=== PATIENT | male | born 1950 | race Caucasian/White ===

== ENCOUNTER → 2017-10-07 | Outpatient (CLI) | payer OTHER ==
[~2017-10-07] MED LIST: ADVIN10/60 INH; ADVIN50050 INH; ASPEC81 PO; CMD1 PO; CMD5 PO; CNT PO; CZR50 PO; FLNIN NAE; LEVO1TAB35 PO; METO50TA16 PO; MXRAIN INH; NTRGSL/4 UT; OMEG10007 PO; OPTIRAY 320 IV PRN; OXYC-57 PO; PRED20TA PO; SNG10 PO; TRAM-10 PO; [UNRECOGNIZED DRUG - CODE] PO
[2017-10-07 08:03] LABS: ISTAT HEMOGLOBIN 14.6 g/dl (14.0-18.0); ISTAT IONIZED CALCIUM 1.24 mmol/l (1.12-1.32)
--- NOTE | 2017-10-07 08:44 | DIAGNOSTIC IMAGING REPORT ---
CHEST CTA for PULMONARY ARTERIES CT DOSE: 570.85 mGycm HISTORY: Short of breath. TECHNIQUE: Multiaxial CT images of the chest were performed following the intravenous administration of contrast to evaluate the pulmonary arteries. Maximal intensity projection images were also obtained. A dose lowering technique was utilized adhering to the principles of ALARA. COMPARISON STUDY: Chest CTA 09/10/2011. Outside hospital chest CTA 04/05/2017. FINDINGS: The ascending thoracic aorta measures up to 4.5 cm in diameter. Evaluation for an aortic dissection is nondiagnostic due to the timing of contrast. Mild retrograde opacification into the hepatic veins. No hepatic or splenic masses. The visualized left adrenal gland is unremarkable. Stable 1.3 cm right adrenal gland nodule. Trace right pleural effusion persists. Trace pericardial effusion, unchanged. The heart remains enlarged. Persistent mediastinal and bilateral hilar lymphadenopathy. Dominant mediastinal subcarinal lymph node measures 3.3 x 2.1 cm. No suspicious lytic or blastic osseous lesions. Multiple tiny scattered nodular densities seen throughout the lungs. These have both a centrilobular and perilymphatic distribution. This demonstrates a slight upper lobe predominant. This has slightly improved in the interval. A few small patchy densities within the base the right lower lobe which are similar to the prior study. Small patchy density within the base of the right middle lobe. No definite filling defects seen within the pulmonary arteries to suggest pulmonary embolus. IMPRESSION: 1. No definite evidence for pulmonary embolus. 2. Slight improvement in the multiple tiny scattered nodular densities seen throughout the lungs. The mediastinal or hilar lymphadenopathy remains unchanged. This is nonspecific but could be due to sarcoidosis or an atypical pneumonia. Metastatic disease and tuberculosis could also a similar appearance but are considered less likely 2. Trace pericardial effusion and trace right pleural effusion persist. 3. The heart remains enlarged. 4. No change in the mild aneurysmal dilatation of the ascending thoracic aorta which measures up to 4.5 cm in diameter. Electronically signed by: Ron Craven M.D. 10/07/2017 8:43 AM Dictated Date/Time: 10/07/2017 8:10 AM
== END | disposition home or self-care (01) ==
LOC: C.CTS 07:02
PROVIDERS: ATTEND Physician Assistant
DX: I48.91 Unspecified atrial fibrillation (principal); R06.00 Dyspnea, unspecified; R91.8 Other nonspecific abnormal finding of lung field; R59.0 Localized enlarged lymph nodes; I31.3 Pericardial effusion (noninflammatory); J90 Pleural effusion, not elsewhere classified; I71.2 Thoracic aortic aneurysm, without rupture

== ENCOUNTER → 2017-10-29 | Day surgery (SDC) | payer OTHER ==
[2017-10-28 09:27] VITALS: BMI 32.0
[~2017-10-29] VITALS: Ht 185.4 cm; Wt 110.0 kg
[~2017-10-29] MED LIST changes: +ACET-1256 PO; -ADVIN10/60 INH; -ADVIN50050 INH; +ALBU18002 INH; +ALBUTEROL NEB INH; +ALPR-411 PO; -ASPEC81 PO; +ATOR-22 PO; +ATROPINE SULFATE 0.1 MG/ML 5ML SYR IV PRN; +CALC600T9 PO; -CMD1 PO; -CMD5 PO; -CNT PO; -CZR50 PO; +DEXAMETHASONE SOD INJ 4 MG/ML VIAL ONE; +EpHEDrine SULFATE INJ 50 MG/ML AMP IV PRN; +FENTANYL CITRATE INJ 50 MCG/1 ML 2 ML VIAL ONE; -FLNIN NAE; +FLUT0.15 INTNAS; +FLUT1INH7 INH; +HYDR12.55 PO; +LACTATED RINGER'S 1000ML 1,000 ML IV SCH; -LEVO1TAB35 PO; +LIDOCAINE HCL 2% 2 ML VIAL (20MG/ML) ONE; +LOSA1TAB38 PO; +METF1TAB53 PO; +METO100T14 PO; -METO50TA16 PO; +MIDAZOLAM HCL 1 MG/ML 2ML VIAL ONE; +MONT1TAB3 PO; -MXRAIN INH; -OMEG10007 PO; +ONDANSETRON INJ 2 MG/ML 2 ML VIAL ONE; -OPTIRAY 320 IV PRN; -OXYC-57 PO; -PRED20TA PO; +PROPOFOL IV EMULSION 10 MG/ML 20 ML VIAL IV ONE; +RIVA1TAB4 PO; +ROCURONIUM BROMIDE 10 MG/ML 5 ML VIAL IV ONE; -SNG10 PO; +SUCCINYLCHOLINE CHLORIDE 20 MG/ML 10 ML VIAL IV ONE; -TRAM-10 PO; -[UNRECOGNIZED DRUG - CODE] PO
--- NOTE | 2017-10-29 08:24 | History and Physical ---
History & Physical Date of Service Oct 29, 2017. History & Physical Reason for visit: EBUS History of present illness: Patient is a 67-year-old male presenting to [facility] for EBUS evaluation. The patient does have history of asthma, silicosis, pulmonary nodules, and hilar adenopathy. He follows with LILIAN Ennis as an outpatient. The patient recently had a CTA of the chest on 10/08/2017 which showed multiple tiny scattered nodular densities seen throughout the lungs. Mediastinal or hilar lymphadenopathy was again noted, but could be consistent with sarcoidosis or an atypical pneumonia. Metastatic disease and tuberculosis could also have a similar appearance is. Trace pericardial effusion was also noted. The patient initially saw LILIAN Stone as an outpatient in March 2017 with concerns of increasing breathing problems. The patient previously had been on antibiotics and steroids for asthma exacerbations. At that time, he was treated with Levaquin and prednisone. The patient did also have repeat PFTs completed on 09/04/2017. He was noted to have mild obstructive ventilatory disease with an FEV1 of 72%, no significant response to bronchodilators, signs of hyperinflation based off of RV/TLC ratio of 45 Past medical history: 1. Acute bronchitis (J20.9) 2. Adenopathy, hilar (R59.0) 3. Allergic rhinitis (J30.9) 4. Asthma, intermittent (J45.20) 5. Atrial fibrillation (I48.91) 6. Carotid bruit (R09.89) 7. Chest discomfort (R07.89) 8. Cough (R05) 9. Diabetes (E11.9) 10. Dyslipidemia (E78.5) 11. Dyspnea (R06.00) 12. Hypertension (I10) 13. 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 Pulmonary nodules (R91.8) 15. 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 Amoxicillin TABS 2. KAYLEY Inhibitors Current medications: 1. ProAir HFA 108 (90 Base) MCG/ACT Inhalation Aerosol Solution; INHALE 2 PUFFS EVERY 4 HOURS NEEDED 2. Breo Ellipta 200-25 MCG/INH Inhalation Aerosol Powder Breath Activated; INHALE 1 PUFFS Daily 3. PredniSONE 10 MG Oral Tablet; Take 4 pills daily for 2 days, then 3 pills daily for 2 days, then 2 pills daily for 2 days, then 1 pill daily for 2 days 4. Caltrate 600+D Plus Minerals 600-800 MG-UNIT Oral Tablet Chewable 5. HydroCHLOROthiazide 12.5 MG Oral Tablet 6. LevoFLOXacin 750 MG Oral Tablet 7. Losartan Potassium 100 MG Oral Tablet; Take 1 tablet daily 8. MetFORMIN HCl - 500 MG Oral Tablet 9. Nitroglycerin 0.4 MG Sublingual Tablet Sublingual; PLACE 1 TABLET UNDER THE TONGUE EVERY 5 MINUTES FOR UP TO 3 DOSES NEEDED FOR CHEST PAIN.CALL 911 IF PAIN PERSISTS 10. Singulair 10 MG Oral Tablet 11. Xarelto 20 MG Oral Tablet; Take 1 tablet daily Physical exam: General: Patient is awake, alert, cooperative, and in no acute distress. Well developed. Well-nourished. Skin: Normal appearance, texture, and temperature. No apparent rash or ecchymoses. HEENT: Normocephalic and atraumatic. Eyes are anicteric and non-erythematous. EOMI c PERRLA. Hearing intact and without difficulty. Nose appears normal and without drainage. Trachea midline. Thyroid appears normal, and neck is supple. Lungs: No respiratory distress. No accessory muscle use. Heart: Regular rate and rhythm. Extremities: No cyanosis or edema. Neuro: Alert and oriented X3. CN II-XII grossly intact. Sensation and motor function grossly intact. Assessment and plan: Multiple pulmonary nodules and hilar/mediastinal lymphadenopathy on CT scan Plan for evaluation with EBUS today
[2017-10-29 08:42] VITALS: BP 148/96; PULSE 92; TEMP 36.5; O2SAT 96; Ht 185.4 cm; Wt 110.0 kg
--- NOTE | 2017-10-29 10:00 | History & Physical Bridge Note ---
H&P Re-Evaluation Bridge Note: I have examined the patient, reviewed the History & Physical and in the interval since the performance of the History & Physical I have noted the following changes of clinical significance: No changes noted
--- NOTE | 2017-10-29 11:25 | Bronchoscopy Procedure Note ---
Bronchoscopy Procedure Note Procedure: Flexible-Bronchoscopy, EBUS, FNA, Tbbx, BAL Consent: Obtained through the patient placed into the chart Pre-Procedural Dx: Mediastinal adenopathy with bilateral tree-in-bud pattern Post-Procedural Dx: Mediastinal adenopathy with bilateral tree-in-bud pattern Analgesia: GETA Sedation: GETA Procedure: The Olympus video bronchoscope and EBUS scope were used for this procedure Initially the flexible bronchoscope was used for evaluation of the airways. An LMA Size 5 was used for this procedure and properly positioned Vocal Cords: Anatomically WNL Sub-Glottis & Trachea: Anatomically WNL, diffuse mucus secretions Mariangel: Anatomically within normal limits, diffuse mucous secretions Right bronchial tree: Right mainstem bronchus: Anatomically within normal limits Right upper lobe: Anatomically within normal limits Bronchus intermedius: Anatomically within normal limits Right middle lobe: Anatomically within normal limits Right lower lobe: Anatomically within normal limits Findings: Diffuse mucous secretions especially in the right upper lobe Left bronchial tree: Left mainstem bronchus: Anatomically within normal limits Left upper lobe: Anatomically within normal limits Lingula: Anatomically within normal limits Left lower lobe: Anatomically within normal limits Findings: Mild mucous secretions EBUS/BEATRICE: FNA Olive Stations: 7: # of passes 8 (multiple different olive sites anterior and posterior/ left and right) 10R: # of passes 10 Tbbx: Right upper lobe 7 BAL: Right upper lobe EBL: 10 cc Complications: Mild intra-bronchial bleeding from the right upper lobe associated with the Tbbx None Follow-up: PACU
--- NOTE | 2017-10-29 12:06 | Anesthesiology Progress Note ---
Anesthesia Post Op Note Date & Time Oct 29, 2017 at 12:05 Vital Signs Pain Intensity: 0 Vital Signs Past 12 Hours Date Time Temp Pulse Resp B/P (MAP) Pulse Ox O2 Delivery O2 Flow Rate FiO2 10/29/17 11:55 82 21 132/87 95 Nasal Cannula 2 10/29/17 11:45 82 18 138/95 99 Mask 10 10/29/17 11:35 89 18 121/83 97 Mask 15 10/29/17 11:26 36.0 114 22 132/89 80 Oxymask 10 10/29/17 08:42 36.5 92 18 148/96 (113) 96 Room Air Notes Mental Status: alert / awake / arousable, participated in evaluation Pt Amnestic to Procedure: Yes Nausea / Vomiting: adequately controlled Pain: adequately controlled Airway Patency, RR, SpO2: stable & adequate BP & HR: stable & adequate Hydration State: stable & adequate Anesthetic Complications: no major complications apparent
[2017-10-29 12:35] VITALS: BP 111/61; PULSE 82; TEMP 36.7; O2SAT 92
--- NOTE | 2017-10-29 12:44 | Discharge Instructions ---
Discharge Instructions Date of Service Oct 29, 2017. Admission Reason for Admission: Hilar Adenoptahy, Pulmonary Nodules Discharge Discharge Diagnosis / Problem: Mediastinal Adenopathy with multiple small pulmonary nodules Discharge Goals Goal(s): Diagnostic testing Activity Recommendations Activity Limitations: resume your previous activity . Instructions / Follow-Up Instructions / Follow-Up With Provider Aiden Gatica Current Hospital Diet Patient's current hospital diet: Discharge Diet Recommended Diet: Regular Diet Procedures Procedures Performed: Flexible Bronchoscopy, Endobronchial Ultrasound, Trans-Tracheal Bronchial Needle Aspiration Transbronchial Forcep-Biopsy, Bronchial Lavage Pending Studies Studies pending at discharge: yes List of pending studies: Chest X-ray Medical Emergencies . Who to Call and When: Medical Emergencies: If at any time you feel your situation is an emergency, please call 911 immediately. . Non-Emergent Contact Non-Emergency issues call your: Production Quality Manager . . "Provider Documentation" section prepared by Geoffrey Agarwal. . VTE Core Measure Inpt VTE Proph given/why not?: Treatment not indicated
[2017-10-29 13:00] VITALS: BP 92/54; PULSE 83; O2SAT 91
[2017-10-29 13:33] VITALS: BP 111/63; PULSE 85; TEMP 36.8; O2SAT 94
--- NOTE | 2017-10-29 14:03 | DIAGNOSTIC IMAGING REPORT ---
CHEST ONE VIEW PORTABLE HISTORY: 67 years-old Male R/O PTX follow-up study in a patient with pulmonary nodules COMPARISON: CTA of the chest 10/07/2017, chest radiograph 09/12/2011 TECHNIQUE: Portable AP view of the chest FINDINGS: Cardiac silhouette is moderately enlarged, unchanged. Mild pulmonary vascular congestion without overt pulmonary edema. Multifocal multilobar reticular nodular opacities are again seen which appears stable to slightly progressed from comparison. Mild blunting of the costophrenic angles suggests trace effusions. No pneumothorax. The bones of the chest appear grossly intact. IMPRESSION: 1. Persistent multifocal multilobar distribution of reticular nodular opacities which appears stable to slightly progressed from comparison CT of the chest 10/07/2017. 2. Cardiomegaly without overt pulmonary edema. 3. Mild blunting of the costophrenic angles suggests trace effusions. The above report was generated using voice recognition software. It may contain grammatical, syntax or spelling errors. Electronically signed by: Chase Silva M.D. 10/29/2017 2:02 PM Dictated Date/Time: 10/29/2017 1:59 PM
== END | disposition home or self-care (01) ==
LOC: C.ACU 07:39
PROVIDERS: ATTEND Internal Medicine Critical Care Medicine
DX: R59.0 Localized enlarged lymph nodes (principal); R91.8 Other nonspecific abnormal finding of lung field; J45.20 Mild intermittent asthma, uncomplicated; I48.91 Unspecified atrial fibrillation; R09.89 Other specified symptoms and signs involving the circulatory and respiratory systems; E78.5 Hyperlipidemia, unspecified; I10 Essential (primary) hypertension; E11.9 Type 2 diabetes mellitus without complications; Z79.01 Long term (current) use of anticoagulants; Z79.84 Long term (current) use of oral hypoglycemic drugs; Z79.899 Other long term (current) drug therapy

== ENCOUNTER 2023-09-30 13:57 | Observation (INO) ==
--- NOTE | 2023-09-30 14:12 | ED Triage Note ---
Date of Service September 30, 2023 History of Present Illness This patient was briefly evaluated while in triage. An abbreviated physical exam was performed. This patient is a 73-year-old Male who presents to the ED for evaluation of hemoptysis, bright red clots. 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 No chest pain or dyspnea. Takes blood thinners. No fevers or URI symptoms. + history of CKD. Physical Exam CONSTITUTIONAL: in no acute pain or distress, resting comfortably SKIN: pink, warm, dry CARDIAC: regular rate and rhythm RESPIRATORY: in no respiratory distress, Left lung decreased lung sounds Initial orders for labs and / or imaging were placed and patient was placed in the waiting area until a bed is available. Please see further documentation for the full ED course.
[2023-09-30 14:54] LABS: Basophils # (auto) 0.02 K/uL (0.00-0.20); Basophils % (auto) 0.3 %; Eosinophils # (auto) 0.04 K/uL (0.00-0.50); Eosinophils % (auto) 0.6 %; Hematocrit (blood only) 46.3 % (42.0-52.0); Hemoglobin 15.8 g/dl (14.0-18.0); Immature Granulocytes # (auto) 0.01 K/uL (0.01-0.20); Immature Granulocytes % (auto) 0.2 %; Lymphocytes # (auto) 0.63 K/uL (1.20-3.40); Lymphocytes % (auto) 9.8 %; Mean Corpuscular Hgb Conc 34.1 g/dL (32.0-36.0); Mean Corpuscular Volume 90.8 fL (80.0-100.0); Mean Platelet Volume 10.5 fL (9.4-12.4); Monocytes # (auto) 0.61 K/uL (0.11-0.59); Monocytes % (auto) 9.4 %; Neutrophils # (auto) 5.15 K/uL (1.40-6.50); Neutrophils % (auto) 79.7 %; Platelet Count 198 K/uL (130-400); RDW Coefficient of Variation 13.8 % (11.5-14.5); RDW Standard Deviation 46.5 fL (36.4-46.3); White Blood Count 6.46 K/ul (4.8-10.8)
--- NOTE | 2023-09-30 14:55 | XRay Report ---
SINGLE VIEW CHEST CLINICAL HISTORY: Hemoptysis FINDINGS: A PA chest radiograph is compared to study dated 10/29/2017 and correlated with chest CT kenny ed 07/21/2019. The heart is enlarged. The pulmonary vasculature is noncongested. Innumerable tiny pulm onary nodules are similar to previous. There is bibasilar scarring/atelectasis. Foci of parenchymal s carring are observed. No superimposed airspace consolidation or large pleural effusion is identified. No pneumothorax is seen. Skeletal structures are osteopenic. The bony thorax is grossly intact. IMPRESSION: 1. Cardiomegaly with no acute cardiopulmonary abnormality identified. 2. Innumerable tiny pulmonary nodules are similar to previous. This is better assessed on prior CT sc ans. ACT 112: Negative or not required by law. Electronically signed by: Madi Askew M.D. 09/30/2023 2:54 PM
[2023-09-30 15:02] LABS: Alanine Aminotransferase 12 U/L (7-52); Albumin Level 4.1 gm/dl (3.4-5.0); Alkaline Phosphatase 63 U/L (34-104); Anion Gap 6 (3-11); Aspartate Aminotransferase 14 U/L (13-39); Blood Urea Nitrogen 25 mg/dl (6-23); Calcium 9.7 mg/dl (8.6-10.3); Carbon Dioxide 31 mmol/L (21-32); Chloride 100 mmol/L (98-107); Est GFR (African American) 68.8 ml/min; Est GFR (Non-African American) 59.4 ml/min; Globulin 4.3 gm/dl (2.5-4.0); Glucose 114 mg/dl (70-99(Fasting)); Potassium 3.8 mmol/L (3.5-5.1); Sodium 137 mmol/L (136-145); Total Protein 8.4 gm/dl (6.0-8.3)
--- NOTE | 2023-09-30 15:29 | Electrocardiogram Report ---
Test Reason : Blood Pressure : / mmHG Vent. Rate : 087 BPM Atrial Rate : 087 BPM P-R Int : 000 ms QRS Dur : 134 ms QT Int : 378 ms P-R-T Axes : 000 -77 059 degrees QTc Int : 454 ms Undetermined rhythm Left axis deviation Left bundle branch block Abnormal ECG When compared with ECG of 13-SEP-2011 06:41, Significant changes have occurred Confirmed by Misael Tesfaye ([id number]) on 09/30/2023 3:28:45 PM Referred By: Confirmed By:Misael Tesfaye
--- NOTE | 2023-09-30 18:08 | Emergency Department Note ---
Impression & Plan Hemoptysis ED Provider Note NAME: ISAEL MIN AGE: 73 SEX: M : 1950 ARRIVES VIA: Walk-In INFORMANT: Patient, ED PROVIDER(S): Kamron Pozo MD CHIEF COMPLAINT: Hemoptysis HPI: This is a 73-year-old male presenting for hemoptysis. Patient states that he has history of silicosis usually coughs up yellow sputum. Over the past few days he has noticed he had usual yellow sputum with slight blood tinge. This morning however he notes that there was only blood in his sputum. He then noticed he coughed up a "big glob "elevated they look exactly for blood clot. He states he has had some chest tightness during this episode. Otherwise no chest pain, pleurisy. He is on anticoagulation, Xarelto. He has not happened before. At this time he has not had any hemoptysis for the past 5 hours. He has not coughing, which is usual for him with his silicosis. Denies any recent chest congestion, sinus congestion, fevers, chills. ROS: See above HPI for pertinent positives & negatives. A total of 10 systems reviewed and were otherwise negative. PAST MEDICAL HISTORY: See Below PAST SURGICAL HISTORY: See Below FAMILY HISTORY: See Below SOCIAL HISTORY: See Below HOME MEDICATIONS: See Below ALLERGIES: See Below VITALS: See Below PHYSICAL EXAMINATION: General: resting comfortably in no acute distress Head: Normocephalic and atraumatic Eyes: Normal inspection, extraocular muscles intact, no conjunctival pallor Ear, nose, throat: Normal external exam Neck: Normal range of motion Respiratory: Patient is in no respiratory distress, lungs clear to auscultation bilaterally Cardiovascular: RRR without murmur appreciated GI: soft, nontender, no guarding or rebound Extremities: pulses intact with good cap refills, no LE pitting edema or calf tenderness Neuro: The patient awake and alert, appropriately conversive,no focal decifits Skin: Warm, dry, and intact MEDICAL DECISION MAKING: This is a 73-year-old male presenting for hemoptysis. Vital signs reviewed patient is on anticoagulation as well. Lower concern for PE however due to increasing amounts of hemoptysis today, will get CTA PE protocol. May also help elucidate any underlying pneumonia. CTA does reveal multiple tree-in-bud densities concerning for aspiration versus intra-alveolar hemorrhage. Based on clinical history, lower concern for intra- alveolar hemorrhage. Otherwise patient has new mass, 2 cm on left lower lobe. Discussed with patient's conservation or heritage architect, Dr. Taylor, who is in agreement about plan for admission. He recommends antibiotics and steroids over the course the night. Patient be seen by his conservation or heritage architect tomorrow morning. Chest Xray independently interpreted by me showing no pneumothorax, focal opacity, or pleural effusions, but does show cardiomegaly. We will admit for persistent hemoptysis. Triage Nursing notes reviewed. Prior medical records reviewed Vital Signs: reviewed and remarkable for no significant abnormalities Differential diagnosis: Pulm hemorrhage, PE, mass ER treatment provided: See below Diagnostics interpreted by me: ECG: ECG independently interpreted by me with possible atrial fibrillation with a ventricular rate of rate of 87, left axis deviation, left bundle branch block, normal QTc, no ST segment elevations consistent with STEMI criteria or Sgarbossa criteria Cardiac Monitoring: An order was placed for continuous cardiac monitoring. The monitor shows a rate of 76 with atrial fibrillation rhyth Laboratory studies: As stated above and show below. Imaging studies: See below. 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 History of shortness of breath History of pulmonary embolism Family History (Updated 02/22/20 @ 09:14 by Jo Dobson RRT) Father Heart disease Mother Cancer Social History (Updated 02/22/20 @ 09:16 by Jo Dobson RRT) Smoking Status: Never smoker Feels Safe at Home: Yes Allergies Allergies Allergy/AdvReac Type Severity Reaction Status Date / Time amoxicillin Allergy Unknown Hives Verified 06/03/23 09:37 doxycycline AdvReac Intermediate naushea Verified 06/03/23 09:37 KAYLEY Inhibitors AdvReac Unknown Cough Verified 06/03/23 09:37 Home Meds Home Medications Medication Instructions Recorded Confirmed acetaminophen 325 mg tablet PO PRN 07/30/19 06/03/23 atorvastatin 20 mg tablet PO .TAKE 1 TABLET BY EDWIN #90 tabs 07/30/19 06/03/23 bumetanide 1 mg tablet PO .TAKE 1 TABLET TWICE 07/30/19 06/03/23 calcium carbonate 600 mg calcium PO .TAKE 1 TABLET DAILY. 07/30/19 06/03/23 (1,500 mg) tablet cholecalciferol (vitamin D3) 50 1 PO .TAKE 1 CAPSULE Daily 07/30/19 06/03/23 mcg (2,000 unit) capsule fluticasone propionate 50 intranasal PRN 07/30/19 06/03/23 mcg/actuation nasal spray,suspension losartan 100 mg tablet 1 PO .Take 1 tablet daily #30 tabs 07/30/19 06/03/23 metoprolol tartrate 100 mg tablet PO .TAKE 1 TABLET BY EDWIN 07/30/19 06/03/23 montelukast 10 mg tablet PO .TAKE 1 TABLET DAILY. 07/30/19 06/03/23 nitroglycerin 0.4 mg sublingual sublingual .PLACE 1 TABLET UNDER 07/30/19 06/03/23 tablet alprazolam 0.5 mg tablet PO .Take 1 tablet every PRN #90 07/13/20 06/03/23 tabs clonidine HCl 0.1 mg tablet 0.1 mg PO BID 12/05/22 06/03/23 cyanocobalamin (vitamin B-12) 1,000 mcg PO DAILY 04/02/23 06/03/23 1,000 mcg capsule dapagliflozin propanediol 10 mg 10 mg PO DAILY 04/02/23 06/03/23 tablet (Farxiga) dulaglutide 0.75 mg/0.5 mL mg subcut 04/02/23 06/03/23 subcutaneous pen injector (Trulicity) hydrochlorothiazide 25 mg tablet 25 mg PO DAILY 04/02/23 06/03/23 rivaroxaban 20 mg tablet (Xarelto) 20 mg PO DAILY 04/02/23 06/03/23 Previous Rx's Medication Instructions Recorded sodium chloride 7 % for 4 ml inhalation BID #240 mL 05/03/22 nebulization albuterol sulfate 90 mcg/actuation 2 puff inhalation Q4H PRN 10/01/22 aerosol inhaler shortness of breath or wheezing #18 grams ipratropium 0.5 mg-albuterol 3 mg 3 ml inhalation Q4H PRN shortness 04/01/23 (2.5 mg base)/3 mL nebulization of breath or wheezing #360 mL soln fluticasone fur. 100 mcg-umeclid 1 inh inhalation DAILY #3 Inhalers 05/31/23 62.5 mcg-vilant 25 mcg inhalat.powder azithromycin 500 mg tablet See Rx Instructions PO .COMPLEX #3 09/30/23 tabs prednisone 10 mg tablet 40 mg (4 x 10 mg) PO DAILY 5 days 09/30/23 #20 tabs Results & Data (ED) Vital Signs Vital Signs - 24 hr 09/30/23 14:04 09/30/23 14:04 09/30/23 17:10 Temperature 36.2 C L Temperature Source Temporal Artery Scan Pulse Rate 77 Pulse Rate [Right] 68 Pulse Rhythm [Right] Regular Pulse Strength [Right] Respiratory Rate 18 18 Respiratory Effort / Characteristics Respiratory Depth Respiratory Pattern Blood Pressure 121/81 Blood Pressure [Right Arm] 139/82 Blood Pressure Mean 94 Blood Pressure Mean [Right Arm] 101 Blood Pressure Position Sitting Pulse Oximetry 96 96 96 Oxygen Delivery Method Room Air Room Air Room Air Sepsis Recent Fever Within 48 Hours No Sepsis New/Unexplained Change in Mental Status N/A Sepsis Action Taken by Nursing No Action Required 09/30/23 17:56 09/30/23 18:32 09/30/23 18:51 Temperature Temperature Source Pulse Rate 72 Pulse Rate [Right] 64 101 H Pulse Rhythm [Right] Regular Irregular Pulse Strength [Right] Normal Normal Respiratory Rate 18 26 H Respiratory Effort / Characteristics Non-Labored Spontaneous SOB on Exertion Respiratory Depth Normal Respiratory Pattern Regular Regular Blood Pressure Blood Pressure [Right Arm] 155/85 H 138/99 Blood Pressure Mean Blood Pressure Mean [Right Arm] 108 112 Blood Pressure Position Pulse Oximetry 98 Oxygen Delivery Method Room Air Room Air Sepsis Recent Fever Within 48 Hours Sepsis New/Unexplained Change in Mental Status Sepsis Action Taken by Nursing 09/30/23 20:23 09/30/23 21:46 Temperature Temperature Source Pulse Rate 76 Pulse Rate [Right] 74 Pulse Rhythm [Right] Regular Pulse Strength [Right] Normal Respiratory Rate 18 Respiratory Effort / Characteristics Non-Labored Spontaneous Respiratory Depth Normal Respiratory Pattern Regular Blood Pressure Blood Pressure [Right Arm] 149/80 H Blood Pressure Mean Blood Pressure Mean [Right Arm] 103 Blood Pressure Position Pulse Oximetry 96 Oxygen Delivery Method Room Air Sepsis Recent Fever Within 48 Hours Sepsis New/Unexplained Change in Mental Status Sepsis Action Taken by Nursing Laboratory Data 09/30/23 14:28 09/30/23 14:28 Lab Results 09/30/23 Range/Units 14:28 WBC 6.46 (4.8-10.8) K/ul RBC 5.10 (4.70-6.10) M/uL Hgb 15.8 (14.0-18.0) g/dl Hct 46.3 (42.0-52.0) % MCV 90.8 (80.0-100.0) fL MCH 31.0 (25.0-34.0) pg MCHC 34.1 (32.0-36.0) g/dL RDW Std Deviation 46.5 H (36.4-46.3) fL RDW Coeff of Amber 13.8 (11.5-14.5) % Plt Count 198 (130-400) K/uL MPV 10.5 (9.4-12.4) fL Immature Gran % (Auto) 0.2 % Neut % (Auto) 79.7 % Lymph % (Auto) 9.8 % [place] % (Auto) 9.4 % Eos % (Auto) 0.6 % Baso % (Auto) 0.3 % Neut # (Auto) 5.15 (1.40-6.50) K/uL Lymph # (Auto) 0.63 L (1.20-3.40) K/uL [place] # (Auto) 0.61 H (0.11-0.59) K/uL Eos # (Auto) 0.04 (0.00-0.50) K/uL Baso # (Auto) 0.02 (0.00-0.20) K/uL Immature Gran # (Auto) 0.01 (0.01-0.20) K/uL Sodium 137 (136-145) mmol/L Potassium 3.8 (3.5-5.1) mmol/L Chloride 100 (98-107) mmol/L Carbon Dioxide 31 (21-32) mmol/L Anion Gap 6 (3-11) BUN 25 H (6-23) mg/dl Creatinine 1.19 (0.6-1.4) mg/dl Est Cr Clr Drug Dosing Not Reportable Est GFR ( Amer) 68.8 ml/min Est GFR (Non-Af Amer) 59.4 ml/min BUN/Creatinine Ratio 21.0 H (10-20) Glucose 114 H (70-99(Fasting)) mg/dl Calcium 9.7 (8.6-10.3) mg/dl Total Bilirubin 1.0 (0.2-1.0) mg/dl AST 14 (13-39) U/L ALT 12 (7-52) U/L Alkaline Phosphatase 63 (34-104) U/L Troponin I High Sens 10.0 (0-20) pg/ml Total Protein 8.4 H (6.0-8.3) gm/dl Albumin 4.1 (3.4-5.0) gm/dl Globulin 4.3 H (2.5-4.0) gm/dl Albumin/Globulin Ratio 1.0 (0.9-2) Administered Medications Ceftriaxone Sodium (Rocephin) 2,000 mg in 50 mls @ 100 mls/hr IV NOW STA Stop: 09/30/23 21:51 Last Admin: 09/30/23 21:38 Dose: 100 mls/hr Documented By: VINAYAK Discontinued Medications Ioversol (Optiray 320 500ml) 112 ml IV ONCE ONE Stop: 09/30/23 19:29 Last Admin: 09/30/23 19:33 Dose: 112 ml Documented By: PLW Methylprednisolone (Methylprednisolone 125 Mg/2 Ml Vial) 125 mg IV NOW STA Stop: 09/30/23 21:24 Last Admin: 09/30/23 21:34 Dose: 125 mg Documented By: VINAYAK Imaging Data Radiologist's Impression: Chest X-Ray 09/30/23 14:09 SINGLE VIEW CHEST CLINICAL HISTORY: Hemoptysis FINDINGS: A PA chest radiograph is compared to study dated 10/29/2017 and correlated with chest CT dated 07/21/2019. The heart is enlarged. The pulmonary vasculature is noncongested. Innumerable tiny pulmonary nodules are similar to previous. There is bibasilar scarring/atelectasis. Foci of parenchymal scarring are observed. No superimposed airspace consolidation or large pleural effusion is identified. No pneumothorax is seen. Skeletal structures are osteopenic. The bony thorax is grossly intact. IMPRESSION: 1. Cardiomegaly with no acute cardiopulmonary abnormality identified. 2. Innumerable tiny pulmonary nodules are similar to previous. This is better assessed on prior CT scans. ACT 112: Negative or not required by law. Electronically signed by: Madi Askew M.D. 09/30/2023 2:54 PM Chest CTA 09/30/23 17:49 Exam(s): CTA CHEST IV Amt: 112 ml opti 320 EXAM: CT Angiography Chest With Intravenous Contrast CLINICAL HISTORY: Reason for exam: PE, coughing up blood. TECHNIQUE: Axial computed tomographic angiography images of the chest with intravenous contrast. CTDI is 66.5 mGy and DLP is 1789.49 mGy-cm. Automated exposure control was utilized for the study. A dose lowering technique was utilized adhering to the principles of ALARA. MIP reconstructed images were created and reviewed. COMPARISON: No relevant prior studies available. FINDINGS: Pulmonary arteries: Unremarkable. No pulmonary embolism. Aorta: Ascending aorta is ectatic, measuring 4.4 cm in diameter. No thoracic aortic aneurysm. Lungs: 7 mm nodule seen in the left lower lobe on image 27, series 2. 1.4 cm nodular density seen in the left posterior lung base on image 18, series 2. 2 cm diameter nodular density seen in the left lower lobe with surrounding tree-in-bud inflammatory densities. There are tree-in-bud inflammatory densities seen scattered in the upper lobes and right lower lobe. Pleural space: Unremarkable. No significant effusion. No pneumothorax. Heart: Small pericardial effusion. Moderate cardiomegaly. No evidence of RV dysfunction. Mediastinum: There is mild hilar and mediastinal lymphadenopathy. Bones/joints: No acute fracture. No dislocation. IMPRESSION: 1. Bilateral extensive tree-in-bud densities in the lungs which could be from aspiration changes or intra-alveolar hemorrhage. 2. Nodular lesions in the left lower lobe measuring up to 2 cm in diameter, the differential diagnosis of which includes neoplastic process. 3. Hilar and mediastinal lymphadenopathy Electronically signed by: Masoud Nowak MD 09/30/23 20:34 PM Discharge Plan Visit Data Chief Complaint: Cardiac Assessment Stated Complaint: COUGHING UP BLOOD, TIGHTNESS IN CHEST ED Provider: Kamron Pozo Discharge Problem: Hemoptysis Forms Stand Alone Forms: [employer] [facility] Prescriptions Prescriptions: No Action sodium chloride 7 % solution for nebulization 4 ml inhalation BID Qty: 240 5RF albuterol sulfate 90 mcg/actuation HFA aerosol inhaler 2 puff inhalation Q4H PRN (Reason: shortness of breath or wheezing) Qty: 18 5RF ipratropium-albuterol 0.5 mg-3 mg(2.5 mg base)/3 mL solution for nebulization 3 ml inhalation Q4H PRN (Reason: shortness of breath or wheezing) Qty: 360 3RF ssottgurnpr-haaqrmttu-pvzxlnod 100-62.5-25 mcg blister with device 1 inh inhalation DAILY Qty: 3 3RF prednisone 10 mg tablet 40 mg PO DAILY 5 Days Qty: 20 0RF azithromycin 500 mg tablet See Rx Instructions PO .COMPLEX Qty: 3 0RF Rx Instructions: For 500 mg dose pack: take 500 mg once daily for 3 days PO fluticasone propionate 50 mcg/actuation spray,suspension intranasal PRN losartan 100 mg tablet 1 PO .Take 1 tablet daily Qty: 30 montelukast 10 mg tablet PO .TAKE 1 TABLET DAILY. nitroglycerin 0.4 mg tablet, sublingual SL .PLACE 1 TABLET UNDER calcium carbonate 600 mg calcium (1,500 mg) tablet PO .TAKE 1 TABLET DAILY. acetaminophen 325 mg tablet PO PRN cholecalciferol (vitamin D3) 2,000 unit capsule 1 PO .TAKE 1 CAPSULE Daily bumetanide 1 mg tablet PO .TAKE 1 TABLET TWICE metoprolol tartrate 100 mg tablet PO .TAKE 1 TABLET BY EDWIN atorvastatin 20 mg tablet PO .TAKE 1 TABLET BY EDWIN Qty: 90 alprazolam 0.5 mg tablet PO .Take 1 tablet every PRNQty: 90 clonidine HCl 0.1 mg tablet 0.1 mg PO BID Farxiga 10 mg tablet 10 mg PO DAILY hydrochlorothiazide 25 mg tablet 25 mg PO DAILY Trulicity 0.75 mg/0.5 mL pen injector subcut cyanocobalamin (vitamin B-12) 1,000 mcg capsule 1,000 mcg PO DAILY Xarelto 20 mg tablet 20 mg PO DAILY Rx Instructions: must administer with evening meal Referrals Referrals: Mayte Lee CRNP [Primary Care Provider] -
[2023-09-30] MEDS ORDERED: OPTIRAY 320 500ml IV ONE (19:28)
--- NOTE | 2023-09-30 20:35 | CT Scan Report ---
Exam(s): CTA CHEST IV Amt: 112 ml opti 320 EXAM: CT Angiography Chest With Intravenous Contrast CLINICAL HISTORY: Reason for exam: PE, coughing up blood. TECHNIQUE: Axial computed tomographic angiography images of the chest with intravenous contrast. CTDI is 66.5 mGy and DLP is 1789.49 mGy-cm. Automated exposure control was utilized for the study. A dose lowering technique was utilized adhering to the principles of ALARA. MIP reconstructed images were created and reviewed. COMPARISON: No relevant prior studies available. FINDINGS: Pulmonary arteries: Unremarkable. No pulmonary embolism. Aorta: Ascending aorta is ectatic, measuring 4.4 cm in diameter. No thoracic aortic aneurysm. Lungs: 7 mm nodule seen in the left lower lobe on image 27, series 2. 1.4 cm nodular density seen in the left posterior lung base on image 18, series 2. 2 cm diameter nodular density seen in the left lower lobe with surrounding tree-in-bud inflammatory densities. There are tree-in-bud inflammatory densities seen scattered in the upper lobes and right lower lobe. Pleural space: Unremarkable. No significant effusion. No pneumothorax. Heart: Small pericardial effusion. Moderate cardiomegaly. No evidence of RV dysfunction. Mediastinum: There is mild hilar and mediastinal lymphadenopathy. Bones/joints: No acute fracture. No dislocation. IMPRESSION: 1. Bilateral extensive tree-in-bud densities in the lungs which could be from aspiration changes or intra-alveolar hemorrhage. 2. Nodular lesions in the left lower lobe measuring up to 2 cm in diameter, the differential diagnosis of which includes neoplastic process. 3. Hilar and mediastinal lymphadenopathy Electronically signed by: Masoud Nowak MD 09/30/23 20:34 PM
[2023-09-30] MEDS ORDERED: AZITHROMYCIN 500 MG in DEXTROSE 5% 250 ML IV STA (21:22)
[2023-09-30] MEDS ORDERED: cefTRIAXone SODIUM 2,000 MG/50 ML BAG IV STA (21:22)
[2023-09-30] MEDS ORDERED: methylPREDNISolone 125 MG/2 ML VIAL IV STA (21:23)
[2023-09-30] MEDS ORDERED: cloNIDine HCL 0.1 MG TAB PO ONE (22:46)
[2023-09-30] MEDS ORDERED: METOPROLOL TARTRATE 100 MG TAB PO STA (23:04)
--- NOTE | 2023-09-30 23:10 | History & Physical Report ---
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 He does note change in his chronic yellow sputum cough to a few bright red spots the previous evening, and then dark sputum throughout the day of admission Hold any antiplatelet and anticoagulation agents Given Solu-Medrol 125 mg IV from the ED Solu-Medrol 40 mg IV every 12 hours Ceftriaxone 2 g IV every 24 hours Azithromycin 500 mg IV every 24 hours DuoNebs every 2 hours as needed NSS at 100 mils per hour x1 L Pantoprazole 40 mg IV daily Consult pulmonology Dr. Taylor History of PE/chronic anticoagulation with Xarelto- Hold anticoagulation as noted Diabetes mellitus- Hold dulaglutide and dapagliflozin Place on Accu-Cheks with NovoLog SSI Hypertension- Continue metoprolol tartrate and clonidine Hold amlodipine, finerenone, HCTZ and potassium chloride History of Present Illness Chief Complaint: The patient presents to the emergency department with complaint of a change in his chronic cough productive of yellow sputum, to a few bright red spots of blood last evening, and then today reports dark-colored mucus throughout the day. 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 Patient had had a CTA of chest which had concern for possible lung mass, with slight FDG uptake, which resolved after treatment with antibiotics and steroids. He presents to the emergency department with hemoptysis, but reports no change in his baseline dyspnea on exertion. Patient underwent CTA of chest in ED this evening which showed bilateral extensive tree-in-bud densities in the lungs which could be from aspiration or intra-alveolar hemorrhage. Nodular lesions in the left lower lobe measuring up to 2 cm in diameter with differential diagnosis including neoplastic process. Hilar and mediastinal lymphadenopathy were noted. The ED contacted pulmonology Dr. 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 Allergies Allergy/AdvReac Type Severity Reaction Status Date / Time amoxicillin Allergy Unknown Hives Verified 09/30/23 22:45 doxycycline AdvReac Intermediate naushea Verified 09/30/23 22:45 KAYLEY Inhibitors AdvReac Unknown Cough Verified 09/30/23 22:45 Home Medications Medication Instructions Recorded Confirmed Type atorvastatin 20 mg tablet 20 mg PO QAM #90 tabs 07/30/19 09/30/23 History bumetanide 1 mg tablet 1 mg PO BID PRN Fluid Retention 07/30/19 09/30/23 History calcium carbonate 600 mg calcium 600 mg PO QAM 07/30/19 09/30/23 History (1,500 mg) tablet cholecalciferol (vitamin D3) 50 2,000 unit PO QAM 07/30/19 09/30/23 History mcg (2,000 unit) capsule nitroglycerin 0.4 mg sublingual 0.4 mg sublingual UD PRN Chest Pain 07/30/19 09/30/23 History tablet albuterol sulfate 90 mcg/actuation 2 puff inhalation Q4H PRN 10/01/22 09/30/23 Rx aerosol inhaler shortness of breath or wheezing #18 grams dapagliflozin propanediol 10 mg 10 mg PO QAM 04/02/23 09/30/23 History tablet (Farxiga) dulaglutide 0.75 mg/0.5 mL 0.75 mg subcut WK 04/02/23 09/30/23 History subcutaneous pen injector (Trulicity) hydrochlorothiazide 25 mg tablet 25 mg PO QAM 04/02/23 09/30/23 History acetaminophen 500 mg tablet 1,000 mg PO Q6H PRN Fever Or Pain 09/30/23 09/30/23 History (Tylenol Extra Strength) alprazolam 0.5 mg tablet 0.5 mg PO Q6 PRN Anxiety 09/30/23 09/30/23 History amlodipine 5 mg tablet 5 mg PO QAM 09/30/23 09/30/23 History azithromycin 500 mg tablet See Rx Instructions PO .COMPLEX #3 09/30/23 09/30/23 Rx tabs clonidine HCl 0.2 mg tablet 0.2 mg PO BID 09/30/23 09/30/23 History finerenone 10 mg tablet (Kerendia) 10 mg PO QAM 09/30/23 09/30/23 History fluticasone fur. 100 mcg-umeclid 1 ea inhalation QAM 09/30/23 09/30/23 History 62.5 mcg-vilant 25 mcg inhalat.powder (Trelegy Ellipta) ipratropium 0.5 mg-albuterol 3 mg 3 ml inhalation DAILY 09/30/23 09/30/23 History (2.5 mg base)/3 mL nebulization soln ipratropium bromide 42 mcg (0.06 1 - 2 spray intranasal DAILY 09/30/23 09/30/23 History %) nasal spray metoprolol tartrate 100 mg tablet 200 mg PO BID 09/30/23 09/30/23 History montelukast 10 mg tablet 10 mg PO HS 09/30/23 09/30/23 History potassium chloride 20 mEq 20 meq PO BID PRN with bumetanide 09/30/23 09/30/23 History tablet,extended release(part/cryst) (Klor-Con M) prednisone 10 mg tablet 40 mg (4 x 10 mg) PO DAILY 5 days 09/30/23 09/30/23 Rx #20 tabs rivaroxaban 20 mg tablet 20 mg PO PM 09/30/23 09/30/23 History sodium chloride 7 % for 1 inh inhalation BID PRN Congestion 09/30/23 09/30/23 History nebulization Past Med/Surg History Medical History (Updated 10/01/23 @ 04:49 by Anastacio Davison MD) Chronic anticoagulation Abnormal PET scan, lung Weight loss, abnormal Multiple pulmonary nodules determined by computed tomography of lung Moderate persistent asthma Dyspnea on exertion 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 History of shortness of breath History of pulmonary embolism Family History (Updated 02/22/20 @ 09:14 by Jo Dobson RRT) Father Heart disease Mother Cancer Social History (Updated 02/22/20 @ 09:16 by Jo Dobson RRT) Smoking Status: Never smoker Second Hand Exposure: No; Do You Dip or Chew Tobacco: No; Tobacco Cessation Education Requested by Patient: No Hx Alcohol Use: No Hx Substance Use: No Preferred Language: Tuvaluan 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: No Beliefs That Will Affect Care: None Current Living Situation: Spouse Other Information That Helps Us Care for You: No Feels Safe at Home: Yes Safety Concerns: Feels Safe At This Time Assistive Devices: Glasses Review of Systems Review of Systems: The patient denies chest pain, palpitations, change in his baseline shortness of breath and dyspnea on exertion, change in cough, lower extremity swelling, sore throat, fevers, chills, sweats, fatigue, nausea, vomiting, diarrhea , constipation, abdominal pain, pelvic pain, blood in urine or stool, dysuria, urinary frequency or urgency, lightheadedness, dizziness, headache, memory loss, loss of consciousness, rash, imbalance, focal or generalized weakness, numbness or tingling in arms or legs, generalized arthralgias or myalgias, back or neck pain, or night sweats. The review of systems is otherwise negative other than for that already noted above, and at least 10 systems have been reviewed. Physical Exam Physical Exam: The patient is awake, alert and oriented 3, well developed and well nourished, normocephalic and atraumatic, lying in bed and in no acute distress. HEENT--PERRL, EOMI, mucous membranes and oropharynx normal Neck--supple. No JVD. No bruits. Thyroid normal, trachea midline, no adenopathy. Heart--normal S1 and S2. No murmurs, rubs or gallops. Lungs--few coarse breath sounds bilaterally, no respiratory distress, no accessory muscle use. Abdomen--normal bowel sounds and soft. Nontender. Nondistended Extremities--no cyanosis or clubbing. No edema. There are good distal pulses b/l. Dermatologic--normal skin turgor, normal color, no abnormal lymph nodes, no rash. Neurologic--cranial nerves II through XII grossly intact. Rheumatologic--normal range of motion. Psychiatric--normal affect. Results & Data Results & Data Vital Signs (Past 12 Hours) Vital Signs Temp Pulse Pulse Resp BP BP Pulse Ox 09/30/23 22:44 76 19 144/86 H 95 09/30/23 21:46 76 09/30/23 20:23 74 18 149/80 H 96 09/30/23 18:51 101 H 26 H 138/99 09/30/23 18:32 72 09/30/23 17:56 64 18 155/85 H 98 09/30/23 17:10 68 18 139/82 96 09/30/23 14:04 96 09/30/23 14:04 36.2 C L 77 18 121/81 96 O2 Del Method 09/30/23 22:44 Room Air 09/30/23 21:46 09/30/23 20:23 Room Air 09/30/23 18:51 Room Air 09/30/23 18:32 09/30/23 17:56 Room Air 09/30/23 17:10 Room Air 09/30/23 14:04 Room Air 09/30/23 14:04 Room Air Laboratory Results Laboratory Results WBC 6.46 K/ul (4.8-10.8) 09/30/23 14:28 RBC 5.10 M/uL (4.70-6.10) 09/30/23 14:28 Hgb 15.8 g/dl (14.0-18.0) 09/30/23 14:28 Hct 46.3 % (42.0-52.0) 09/30/23 14:28 MCV 90.8 fL (80.0-100.0) 09/30/23 14:28 MCH 31.0 pg (25.0-34.0) 09/30/23 14:28 MCHC 34.1 g/dL (32.0-36.0) 09/30/23 14:28 RDW Std Deviation 46.5 fL (36.4-46.3) H 09/30/23 14:28 RDW Coeff of Amber 13.8 % (11.5-14.5) 09/30/23 14:28 Plt Count 198 K/uL (130-400) 09/30/23 14:28 MPV 10.5 fL (9.4-12.4) 09/30/23 14:28 Immature Gran % (Auto) 0.2 % 09/30/23 14:28 Neut % (Auto) 79.7 % 09/30/23 14:28 Lymph % (Auto) 9.8 % 09/30/23 14:28 [place] % (Auto) 9.4 % 09/30/23 14:28 Eos % (Auto) 0.6 % 09/30/23 14:28 Baso % (Auto) 0.3 % 09/30/23 14: Neut # (Auto) 5.15 K/uL (1.40-6.50) 09/30/23 14: Lymph # (Auto) 0.63 K/uL (1.20-3.40) L 09/30/23 14: Pickens # (Auto) 0.61 K/uL (0.11-0.59) H 09/30/23 14: Eos # (Auto) 0.04 K/uL (0.00-0.50) 09/30/23 14: Baso # (Auto) 0.02 K/uL (0.00-0.20) 09/30/23 14: Immature Gran # (Auto) 0.01 K/uL (0.01-0.20) 09/30/23 14: PT 13.0 Seconds (9.0-12.0) H 09/30/23 23:04 INR 1.2 (0.9-1.1) H 09/30/23 23:04 APTT 27.3 Seconds (21.0-31.0) 09/30/23 23:04 PTT Ratio 1.0 09/30/23 23:04 Sodium 137 mmol/L (136-145) 09/30/23 14: Potassium 3.8 mmol/L (3.5-5.1) 09/30/23 14: Chloride 100 mmol/L (98-107) 09/30/23 14: Carbon Dioxide 31 mmol/L (21-32) 09/30/23 14: Anion Gap 6 (3-11) 09/30/23 14:28 BUN 25 mg/dl (6-23) H 09/30/23 14: Creatinine 1.19 mg/dl (0.6-1.4) 09/30/23 14: Est Cr Clr Drug Dosing Not Reportable 09/30/23 14: Est GFR ( Amer) 68.8 ml/min 09/30/23 14: Est GFR (Non-Af Amer) 59.4 ml/min 09/30/23 14: BUN/Creatinine Ratio 21.0 (10-20) H 09/30/23 14: Glucose 114 mg/dl (70-99(Fasting)) H 09/30/23 14:28 Calcium 9.7 mg/dl (8.6-10.3) 09/30/23 14:28 Total Bilirubin 1.0 mg/dl (0.2-1.0) 09/30/23 14:28 AST 14 U/L (13-39) 09/30/23 14:28 ALT 12 U/L (7-52) 09/30/23 14:28 Alkaline Phosphatase 63 U/L (34-104) 09/30/23 14:28 Troponin I High Sens 10.0 pg/ml (0-20) 09/30/23 14:28 Total Protein 8.4 gm/dl (6.0-8.3) H 09/30/23 14:28 Albumin 4.1 gm/dl (3.4-5.0) 09/30/23 14:28 Globulin 4.3 gm/dl (2.5-4.0) H 09/30/23 14:28 Albumin/Globulin Ratio 1.0 (0.9-2) 09/30/23 14:28 Impressions Chest X-Ray 09/30/23 14:09 SINGLE VIEW CHEST CLINICAL HISTORY: Hemoptysis FINDINGS: A PA chest radiograph is compared to study dated 10/29/2017 and correlated with chest CT dated 07/21/2019. The heart is enlarged. The pulmonary vasculature is noncongested. Innumerable tiny pulmonary nodules are similar to previous. There is bibasilar scarring/atelectasis. Foci of parenchymal scarring are observed. No superimposed airspace consolidation or large pleural effusion is identified. No pneumothorax is seen. Skeletal structures are osteopenic. The bony thorax is grossly intact. IMPRESSION: 1. Cardiomegaly with no acute cardiopulmonary abnormality identified. 2. Innumerable tiny pulmonary nodules are similar to previous. This is better assessed on prior CT scans. ACT 112: Negative or not required by law. Electronically signed by: Madi Askew M.D. 09/30/2023 2:54 PM Chest CTA 09/30/23 17:49 Exam(s): CTA CHEST IV Amt: 112 ml opti 320 EXAM: CT Angiography Chest With Intravenous Contrast CLINICAL HISTORY: Reason for exam: PE, coughing up blood. TECHNIQUE: Axial computed tomographic angiography images of the chest with intravenous contrast. CTDI is 66.5 mGy and DLP is 1789.49 mGy-cm. Automated exposure control was utilized for the study. A dose lowering technique was utilized adhering to the principles of ALARA. MIP reconstructed images were created and reviewed. COMPARISON: No relevant prior studies available. FINDINGS: Pulmonary arteries: Unremarkable. No pulmonary embolism. Aorta: Ascending aorta is ectatic, measuring 4.4 cm in diameter. No thoracic aortic aneurysm. Lungs: 7 mm nodule seen in the left lower lobe on image 27, series 2. 1.4 cm nodular density seen in the left posterior lung base on image 18, series 2. 2 cm diameter nodular density seen in the left lower lobe with surrounding tree-in-bud inflammatory densities. There are tree-in-bud inflammatory densities seen scattered in the upper lobes and right lower lobe. Pleural space: Unremarkable. No significant effusion. No pneumothorax. Heart: Small pericardial effusion. Moderate cardiomegaly. No evidence of RV dysfunction. Mediastinum: There is mild hilar and mediastinal lymphadenopathy. Bones/joints: No acute fracture. No dislocation. IMPRESSION: 1. Bilateral extensive tree-in-bud densities in the lungs which could be from aspiration changes or intra-alveolar hemorrhage. 2. Nodular lesions in the left lower lobe measuring up to 2 cm in diameter, the differential diagnosis of which includes neoplastic process. 3. 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
[2023-10-01 00:24] LABS: INR 1.2 (0.9-1.1); Partial Thromboplastin Time 27.3 Seconds (21.0-31.0)
[2023-10-01] MEDS ORDERED: ACETAMINOPHEN 325 MG TAB PO PRN (00:42)
[2023-10-01] MEDS ORDERED: ALBUT/IPRATROP 3MG/0.5MG NEB 3 ML VIAL NEB PRN (00:42)
[2023-10-01] MEDS ORDERED: CARBOHYDRATES FOR HYPOGLYCEMIA PO PRN (00:42)
[2023-10-01] MEDS ORDERED: SODIUM CHLORIDE 0.9% 1,000 ML IV SCH (00:42)
[2023-10-01] MEDS ORDERED: ALBUTEROL HFA 8 GM INHALER INH PRN (00:42)
[2023-10-01] MEDS ORDERED: NITROGLYCERIN SL 0.4 MG/TAB TAB SL PRN (00:42)
[2023-10-01] MEDS ORDERED: GLUCOSE 40% GEL 15 GM TUBE PO PRN (00:42)
[2023-10-01] MEDS ORDERED: GLUCOSE 10 TAB/TUBE PO PRN (00:42)
[2023-10-01] MEDS ORDERED: ONDANSETRON INJ 2 MG/ML 2 ML VIAL IV PRN (00:42)
[2023-10-01] MEDS ORDERED: GLUCAGON FOR INJ 1 MG VIAL SQ PRN (00:42)
[2023-10-01] MEDS ORDERED: DEXTROSE 50% 50 ML SYRINGE IV PRN (00:42)
[2023-10-01] MEDS ORDERED: Nursing to Pharmacy Communication SCH ×2 (01:45→10:45)
[2023-10-01] MEDS ORDERED: INSULIN ASPART PER UNIT CHARGE SC SCH ×2 (06:00→07:30)
[2023-10-01 06:38] LABS: Hematocrit (blood only) 46.7 % (42.0-52.0); Hemoglobin 16.2 g/dl (14.0-18.0); Mean Corpuscular Hemoglobin 30.9 pg (25.0-34.0); Mean Corpuscular Hgb Conc 34.7 g/dL (32.0-36.0); Mean Platelet Volume 10.5 fL (9.4-12.4); Platelet Count 185 K/uL (130-400); RDW Coefficient of Variation 13.4 % (11.5-14.5); RDW Standard Deviation 43.8 fL (36.4-46.3); Red Blood Count 5.25 M/uL (4.70-6.10); White Blood Count 3.99 K/ul (4.8-10.8)
[2023-10-01 06:48] LABS: Albumin Globulin Ratio 0.9 (0.9-2); Albumin Level 3.9 gm/dl (3.4-5.0); BUN Creatinine Ratio 22.3 (10-20); Bilirubin,Total 1.2 mg/dl (0.2-1.0); Calcium 9.3 mg/dl (8.6-10.3); Creatinine Clr Calc Pharmacy 71.8 ml/min; Est GFR (African American) 74.1 ml/min; Est GFR (Non-African American) 63.9 ml/min; Globulin 4.3 gm/dl (2.5-4.0); Magnesium 1.8 mg/dl (1.7-2.4); Potassium 3.7 mmol/L (3.5-5.1); Total Protein 8.2 gm/dl (6.0-8.3)
[2023-10-01] MEDS ORDERED: methylPREDNISolone 40 MG in SYRINGE 0 ML IV SCH (07:00)
[2023-10-01 07:03] LABS: Echinocytes 1+; Immature Granulocytes # (auto) 0.01 K/uL (0.01-0.20); Immature Granulocytes % (auto) 0.3 %; Lymphocytes # (auto) 0.26 K/uL (1.20-3.40); Lymphocytes % (auto) 6.5 %; Monocytes # (auto) 0.05 K/uL (0.11-0.59); Monocytes % (auto) 1.3 %; Neutrophils # (auto) 3.67 K/uL (1.40-6.50); Neutrophils % (auto) 91.9 %
--- NOTE | 2023-10-01 08:17 | Pulmonary Consultation ---
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 Hemoptysis is improved this morning. Continue with systemic corticosteroids and transition to oral 40 mg daily and taper over 2 weeks. Recommend 5 days of antibiotics, can transition to PO cefdinir and azithromycin. Obtain respiratory viral panel. Suspect hemoptysis is a sequelae of acute bronchitis possibly due to viral infection. He also has a new left lower lobe nodule measuring approximately 2 cm which appears suspicious. He has had fleeting nodules over the course of the last 2 years. 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 We will obtain AFB sputum cultures and regular Gram stain and sputum cultures. Please hold Xarelto for 3 days. He will need a follow-up CT chest without contrast in 8 to 10 weeks to follow-up on the left lower lobe lung nodule. If it remains persistent, can consider robotic bronchoscopy with navigation. History of Present Illness Reason for Consultation: Hemoptysis Attending Physician: Christopher Woods MD History of Present Illness 73-year-old male with a history of pneumoconiosis secondary to silica dust exposure, multiple pulmonary nodules, moderate persistent asthma and history of PE on Xarelto who presented to the ER due to ongoing shortness of breath and hemoptysis. Patient denies any chest pain. He is chronically on Trelegy 100 mcg daily, Singulair, as needed albuterol and Xarelto. He was last seen in the pulmonary clinic by OUMOU Lloyd 06/04/[address] chest at that time with follow-up in 6 months and a PFT in 1 year. Chest CTA this admission was personally reviewed by me and I reviewed the interpretation by radiology. He has extensive bilateral tree-in-bud opacities and left lower lobe 2 cm nodular infiltrate. PFT 06/03/2023 reviewed with nonspecific spirometric pattern with no significant postbronchodilator response. Lung volumes unremarkable with a TLC of 86% and DLCO 82%. His FVC, FEV1 and DLCO actually improved compared to 06/01/2022. His hemoglobin has remained stable and is currently 16.2. Platelet count of 185,000. INR 1.2 on admission. BUN and creatinine unremarkable. Patient is currently receiving ICS/LABA/LAMA powdered inhalers, methylprednisone 40 mg twice daily, ceftriaxone 2 g daily and azithromycin 500 mg daily. Allergies Allergy/AdvReac Type Severity Reaction Status Date / Time amoxicillin Allergy Unknown Hives Verified 09/30/23 22:45 doxycycline AdvReac Intermediate naushea Verified 09/30/23 22:45 KAYLEY Inhibitors AdvReac Unknown Cough Verified 09/30/23 22:45 Home Medications Medication Instructions Recorded Confirmed Type atorvastatin 20 mg tablet 20 mg PO QAM #90 tabs 07/30/19 09/30/23 History bumetanide 1 mg tablet 1 mg PO BID PRN Fluid Retention 07/30/19 09/30/23 History calcium carbonate 600 mg calcium 600 mg PO QAM 07/30/19 09/30/23 History (1,500 mg) tablet cholecalciferol (vitamin D3) 50 2,000 unit PO QAM 07/30/19 09/30/23 History mcg (2,000 unit) capsule nitroglycerin 0.4 mg sublingual 0.4 mg sublingual UD PRN Chest Pain 07/30/19 09/30/23 History tablet albuterol sulfate 90 mcg/actuation 2 puff inhalation Q4H PRN 10/01/22 09/30/23 Rx aerosol inhaler shortness of breath or wheezing #18 grams dapagliflozin propanediol 10 mg 10 mg PO QAM 04/02/23 09/30/23 History tablet (Farxiga) dulaglutide 0.75 mg/0.5 mL 0.75 mg subcut WK 04/02/23 09/30/23 History subcutaneous pen injector (Trulicity) hydrochlorothiazide 25 mg tablet 25 mg PO QAM 04/02/23 09/30/23 History acetaminophen 500 mg tablet 1,000 mg PO Q6H PRN Fever Or Pain 09/30/23 09/30/23 History (Tylenol Extra Strength) alprazolam 0.5 mg tablet 0.5 mg PO Q6 PRN Anxiety 09/30/23 09/30/23 History amlodipine 5 mg tablet 5 mg PO QAM 09/30/23 09/30/23 History azithromycin 500 mg tablet See Rx Instructions PO .COMPLEX #3 09/30/23 09/30/23 Rx tabs clonidine HCl 0.2 mg tablet 0.2 mg PO BID 09/30/23 09/30/23 History finerenone 10 mg tablet (Kerendia) 10 mg PO QAM 09/30/23 09/30/23 History fluticasone fur. 100 mcg-umeclid 1 ea inhalation QAM 09/30/23 09/30/23 History 62.5 mcg-vilant 25 mcg inhalat.powder (Trelegy Ellipta) ipratropium 0.5 mg-albuterol 3 mg 3 ml inhalation DAILY 09/30/23 09/30/23 History (2.5 mg base)/3 mL nebulization soln ipratropium bromide 42 mcg (0.06 1 - 2 spray intranasal DAILY 09/30/23 09/30/23 History %) nasal spray metoprolol tartrate 100 mg tablet 200 mg PO BID 09/30/23 09/30/23 History montelukast 10 mg tablet 10 mg PO HS 09/30/23 09/30/23 History potassium chloride 20 mEq 20 meq PO BID PRN with bumetanide 09/30/23 09/30/23 History tablet,extended release(part/cryst) (Klor-Con M) prednisone 10 mg tablet 40 mg (4 x 10 mg) PO DAILY 5 days 09/30/23 09/30/23 Rx #20 tabs rivaroxaban 20 mg tablet 20 mg PO PM 09/30/23 09/30/23 History sodium chloride 7 % for 1 inh inhalation BID PRN Congestion 09/30/23 09/30/23 History nebulization Patient History Medical History (Updated 10/01/23 @ 08:15 by Kali Taylor MD) Left lower lobe pulmonary nodule Chronic anticoagulation Abnormal PET scan, lung Weight loss, abnormal Multiple pulmonary nodules determined by computed tomography of lung Moderate persistent asthma Dyspnea on exertion 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 History of shortness of breath History of pulmonary embolism Family History (Updated 02/22/20 @ 09:14 by Jo Dobson, JADA) Father Heart disease Mother Cancer Social History (Updated 02/22/20 @ 09:16 by Jo Dobson RRT) Smoking Status: Never smoker Second Hand Exposure: No; Do You Dip or Chew Tobacco: No; Tobacco Cessation Education Requested by Patient: No Hx Alcohol Use: No Hx Substance Use: No 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 Patient is in no apparent distress. Patient is well-developed. Eyes: Pupils are equal round and reactive to light. Conjunctivae are normal. Anicteric sclera. Ears nose, mouth and throat: Mallampati class 2. Normal posterior oropharynx. Uvula is midline. Neck: Trachea is midline. Visual inspection is normal. Respiratory: Prolonged phase of exhalation. Mild expiratory wheeze. Cardiovascular: Regular rate and rhythm. No murmurs. No edema. Gastrointestinal: Normal bowel sounds, soft, nontender and nondistended. No hepatosplenomegaly noted. Musculoskeletal: No cyanosis. Patient is able to move all extremities. Strength is 5 out of 5 in the upper and lower extremities. Skin: No rashes, warm dry and intact. Neurologic: No obvious focal neurological deficits seen. Psychiatric: Alert and oriented x3 with a euthymic affect. Results & Data Results & Data Vital Signs (Past 12 Hours) Vital Signs Temp Pulse Pulse Resp BP BP Pulse Ox 10/01/23 07:41 36.4 C L 77 19 149/78 H 92 10/01/23 03:18 36.6 C 66 18 104/64 92 10/01/23 00:29 73 10/01/23 00:10 10/01/23 00:10 36.5 C 68 16 127/71 92 10/01/23 00:10 36.5 C 68 16 127/71 92 09/30/23 23:31 78 23 150/95 H 96 09/30/23 23:17 127/73 09/30/23 22:44 76 21 144/86 H 96 09/30/23 22:44 76 19 144/86 H 95 09/30/23 21:46 76 09/30/23 20:24 76 22 149/80 H 96 09/30/23 20:23 74 18 149/80 H 96 O2 Del Method 10/01/23 07:41 Room Air 10/01/23 03:18 Room Air 10/01/23 00:29 10/01/23 00:10 Room Air 10/01/23 00:10 Room Air 10/01/23 00:10 Room Air 09/30/23 23:31 Room Air 09/30/23 23:17 09/30/23 22:44 Room Air 09/30/23 22:44 Room Air 09/30/23 21:46 09/30/23 20:24 09/30/23 20:23 Room Air PG Care Time/CCT Total # of Minutes Spent Total Time Spent with Patient: Total time spent is greater than 50% in coordination of care (as documented) at patient's floor/unit and/or counseling patient: Coding Level of Care Code 09368 INT INP/OBS CARE 375MIN Diagnoses Acute bronchitis J20.9 Chronic anticoagulation Z79.01 Hemoptysis R04.2 Left lower lobe pulmonary nodule R91.1 Moderate persistent asthma J45.40 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
[2023-10-01] MEDS: METOPROLOL TARTRATE 100 MG TAB PO SCH ×2 (08:26→21:18)
[2023-10-01] MEDS: cloNIDine HCL 0.1 MG TAB PO SCH ×2 (08:26→21:18)
[2023-10-01] MEDS: FLUTICASONE FUROATE 100MCG 14 PUFFS/INHALER INH SCH (08:27)
[2023-10-01] MEDS: UMECLIDINIUM/VILANTEROL 62.5/25MCG 7 PUFFS/INHALER INH SCH (08:27)
[2023-10-01] MEDS ORDERED: amLODIPine BESYLATE 5 MG TAB PO SCH (09:00)
[2023-10-01 09:47] LABS: Estimated Average Glucose 140 mg/dl; Hemoglobin A1C 6.5 % (4.5-5.6)
[2023-10-01] MEDS: PANTOprazole 40 MG in SYRINGE 0 ML IV SCH (10:55)
[2023-10-01 11:57] LABS: Adenovirus PCR Not Detected (NotDetected); Bordetella parapertussis PCR Not Detected (NotDetected); Bordetella pertussis PCR Not Detected (NotDetected); Chlamydia pneumoniae PCR Not Detected (NotDetected); Coronavirus 229E PCR Not Detected (NotDetected); Coronavirus CoV-2 (COVID19)PCR Not Detected (NotDetected); Coronavirus HKU1 PCR Not Detected (NotDetected); Coronavirus NL63 PCR Not Detected (NotDetected); Coronavirus OC43PCR Not Detected (NotDetected); Human Metapneumovirus PCR Not Detected (NotDetected); Influenza A PCR Not Detected (NotDetected); Influenza B PCR Not Detected (NotDetected); Mycoplasma pneumoniae PCR Not Detected (NotDetected); Parainfluenza Virus 1 PCR Not Detected (NotDetected); Parainfluenza Virus 2 PCR Not Detected (NotDetected); Parainfluenza Virus 3 PCR Not Detected (NotDetected); Parainfluenza Virus 4 PCR Not Detected (NotDetected); Respiratory Syncytial VirusPCR Not Detected (NotDetected); Rhinovirus/Enterovirus PCR Not Detected (NotDetected)
[2023-10-01] MEDS: INSULIN ASPART PER UNIT CHARGE SC SCH ×3 (12:07→21:19)
--- NOTE | 2023-10-01 18:16 | Hospitalist Progress Note ---
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 He does note change in his chronic yellow sputum cough to a few bright red spots the previous evening, and then dark sputum throughout the day of admission Hold any antiplatelet and anticoagulation agents Stop IV Rocephin, stop IV Solu-Medrol, switch to prednisone 40 mg cefdinir, continue Zithromax, pending sputum collection for a acid-fast bacilli, discussed with the nurse Jacky every 2 hours as needed NSS at 100 mils per hour x1 L Pantoprazole 40 mg IV daily Consult pulmonology Dr. Taylor History of PE/chronic anticoagulation with Xarelto- Hold anticoagulation as noted Diabetes mellitus- Hold dulaglutide and dapagliflozin Place on Accu-Cheks with NovoLog SSI Hypertension- Continue metoprolol tartrate and clonidine Hold amlodipine, finerenone, HCTZ and potassium chloride Admission and Anticipated Discharge Date Admission Date: September 30, 2023 Review of Systems Review of Systems: The patient denies chest pain, palpitations, change in his baseline shortness of breath and dyspnea on exertion, change in cough, lower extremity swelling, sore throat, fevers, chills, sweats, fatigue, nausea, vomiting, diarrhea , con stipation, abdominal pain, pelvic pain, blood in urine or stool, dysuria, urinary frequency or urgency, lightheadedness, dizziness, headache, memory loss, loss of consciousness, rash, imbalance, focal or generalized weakness, numbness or tingling in arms or legs, generalized arthralgias or myalgias, back or neck pain, or night sweats. The review of systems is otherwise negative other than for that already noted above, and at least 10 systems have been reviewed. Physical Exam Physical Exam: Constitutional: Patient appears to be of their stated age. Patient is in no apparent distress. Patient is well-developed. Eyes: Pupils are equal round and reactive to light. Conjunctivae are normal. Anicteric sclera. Ears nose, mouth and throat: Mallampati class 2. Normal posterior oropharynx. Uvula is midline. Neck: Trachea is midline. Visual inspection is normal. Respiratory: Prolonged phase of exhalation. Mild expiratory wheeze. Cardiovascular: Regular rate and rhythm. No murmurs. No edema. Gastrointestinal: Normal bowel sounds, soft, nontender and nondistended. No hepatosplenomegaly noted. Musculoskeletal: No cyanosis. Patient is able to move all extremities. Strength is 5 out of 5 in the upper and lower extremities. Skin: No rashes, warm dry and intact. Neurologic: No obvious focal neurological deficits seen. Psychiatric: Alert and oriented x3 with a euthymic affect. Results & Data Results & Data Vital Signs (Past 12 Hours) Vital Signs Temp Pulse Pulse Resp BP Pulse Ox O2 Del Method 10/01/23 15:57 72 10/01/23 15:43 36.6 C 78 19 114/74 94 Room Air 10/01/23 11:32 36.6 C 76 19 118/81 97 Room Air 10/01/23 10:36 76 10/01/23 10:27 Room Air 10/01/23 07:41 36.4 C L 77 19 149/78 H 92 Room Air PG Care Time/CCT Total # of Minutes Spent Total Time Spent with Patient: Total time spent is greater than 50% in coordination of care (as documented) at patient's floor/unit and/or counseling patient: Coding Level of Care Code 87496 SUB INP/OBS CARE 2/35MIN Diagnoses Hemoptysis R04.2 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
[2023-10-01] MEDS ORDERED: cefTRIAXone SODIUM 2,000 MG in DEXTROSE 5 % MINI-B 50 ML IV SCH (20:00)
[2023-10-01] MEDS ORDERED: AZITHROMYCIN 500 MG in DEXTROSE 5% 250 ML IV SCH (21:00)
[2023-10-02 06:17] LABS: Hematocrit (blood only) 46.5 % (42.0-52.0); Hemoglobin 16.1 g/dl (14.0-18.0); Mean Corpuscular Hemoglobin 31.2 pg (25.0-34.0); Mean Corpuscular Hgb Conc 34.6 g/dL (32.0-36.0); Mean Corpuscular Volume 90.1 fL (80.0-100.0); Mean Platelet Volume 10.6 fL (9.4-12.4); Platelet Count 201 K/uL (130-400); RDW Coefficient of Variation 13.5 % (11.5-14.5); Red Blood Count 5.16 M/uL (4.70-6.10)
[2023-10-02 06:40] LABS: Albumin Level 3.7 gm/dl (3.4-5.0); Bilirubin,Total 0.7 mg/dl (0.2-1.0); Magnesium 1.9 mg/dl (1.7-2.4); Potassium 3.9 mmol/L (3.5-5.1)
[2023-10-02 06:45] LABS: Basophils # (auto) 0.02 K/uL (0.00-0.20); Basophils % (auto) 0.1 %; Immature Granulocytes # (auto) 0.06 K/uL (0.01-0.20); Immature Granulocytes % (auto) 0.3 %; Lymphocytes # (auto) 0.58 K/uL (1.20-3.40); Lymphocytes % (auto) 3.3 %; Monocytes # (auto) 0.97 K/uL (0.11-0.59); Monocytes % (auto) 5.5 %; Neutrophils # (auto) 15.87 K/uL (1.40-6.50); Neutrophils % (auto) 90.8 %
[2023-10-02 06:48] LABS: Albumin Globulin Ratio 0.9 (0.9-2); BUN Creatinine Ratio 28.7 (10-20); Creatinine Clr Calc Pharmacy 74.3 ml/min; Est GFR (African American) 77.4 ml/min; Est GFR (Non-African American) 66.8 ml/min; Globulin 3.9 gm/dl (2.5-4.0); Total Protein 7.6 gm/dl (6.0-8.3)
[2023-10-02] MEDS: cloNIDine HCL 0.1 MG TAB PO SCH (08:23)
[2023-10-02] MEDS: FLUTICASONE FUROATE 100MCG 14 PUFFS/INHALER INH SCH (08:24)
[2023-10-02] MEDS: METOPROLOL TARTRATE 100 MG TAB PO SCH (08:24)
[2023-10-02] MEDS: UMECLIDINIUM/VILANTEROL 62.5/25MCG 7 PUFFS/INHALER INH SCH (08:24)
[2023-10-02] MEDS: INSULIN ASPART PER UNIT CHARGE SC SCH ×2 (08:25→12:14)
[2023-10-02] MEDS ORDERED: predniSONE 20 MG TAB PO SCH (09:00)
[2023-10-02] MEDS ORDERED: AZITHROMYCIN 250 MG TAB PO SCH (09:00)
[2023-10-02] MEDS: PANTOprazole 40 MG in SYRINGE 0 ML IV SCH (10:17)
--- NOTE | 2023-10-02 10:26 | Pulmonology Progress Note ---
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 Hemoptysis continues to improve. Transition to oral prednisone and taper over 2 weeks. Recommend 5 days of antibiotics, can transition to PO cefdinir and azithromycin. Respiratory viral panels 10/01/2023 negative.. Suspect hemoptysis is a sequelae of acute bronchitis possibly due to viral infection. He also has a new left lower lobe nodule measuring approximately 2 cm which appears suspicious. He has had fleeting nodules over the course of the last 2 years. 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 We will obtain AFB sputum cultures and regular Gram stain and sputum cultures. Please hold Xarelto for 3 days. Patient stable for discharge from pulmonary perspective. He will need a follow-up CT chest without contrast in 8 to 10 weeks to follow-up on the left lower lobe lung nodule. If it remains persistent, can consider robotic bronchoscopy with navigation. Thank you for the consultation. We will follow-up as an outpatient. Please call with questions. Admission and Anticipated Discharge Date Admission Date: September 30, 2023 Subjective Patient seen and examined. He is saturating well on room air and ambulating around the room. He had some scant hemoptysis yesterday evening, but this cough is improving this morning. Denies any chest pain. Minimal shortness of breath. Appetite is good. No fevers, chills or night sweats. Review of Systems Review of Systems: All systems reviewed & are unremarkable except as noted in HPI & below Physical Exam Physical Exam: Constitutional: Patient appears to be of their stated age. Patient is in no apparent distress. Patient is well-developed. Eyes: Pupils are equal round and reactive to light. Conjunctivae are normal. Anicteric sclera. Ears nose, mouth and throat: Mallampati class 2. Normal posterior oropharynx. Uvula is midline. Neck: Trachea is midline. Visual inspection is normal. Respiratory: Prolonged phase of exhalation. Mild expiratory wheeze. Cardiovascular: Regular rate and rhythm. No murmurs. No edema. Gastrointestinal: Normal bowel sounds, soft, nontender and nondistended. No hepatosplenomegaly noted. Musculoskeletal: No cyanosis. Patient is able to move all extremities. Strength is 5 out of 5 in the upper and lower extremities. Skin: No rashes, warm dry and intact. Neurologic: No obvious focal neurological deficits seen. Psychiatric: Alert and oriented x3 with a euthymic affect. Results & Data Results & Data Vital Signs (Past 12 Hours) Vital Signs Temp Pulse Pulse Resp BP Pulse Ox O2 Del Method 10/02/23 08:40 Room Air 10/02/23 07:51 36.3 C L 60 19 144/76 H 99 Room Air 10/02/23 03:05 36.4 C L 69 20 122/61 96 Room Air 10/01/23 23:00 76 PG Care Time/CCT Total # of Minutes Spent Total Time Spent with Patient: Total time spent is greater than 50% in coordination of care (as documented) at patient's floor/unit and/or counseling patient: Coding Level of Care Code 84589 SUB INP/OBS CARE 2/35MIN Diagnoses Acute bronchitis J20.9 Chronic anticoagulation Z79.01 Hemoptysis R04.2 Left lower lobe pulmonary nodule R91.1 Moderate persistent asthma J45.40 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
--- NOTE | 2023-10-04 08:40 | Discharge Summary ---
Date of Service October 02, 2023 Admission HPI Per Admitting Provider The patient is a 73-year-old male with a past medical history including pneumoconiosis due to silica, multiple pulmonary nodules, moderate persistent asthma, history of pulmonary embolism on Xarelto, anxiety, diabetes, hypertension, aortic aneurysm. Patient had had a CTA of chest which had concern for possible lung mass, with slight FDG uptake, which resolved after treatment with antibiotics and steroids. He presents to the emergency department with hemoptysis, but reports no change in his baseline dyspnea on exertion. Patient underwent CTA of chest in ED this evening which showed bilateral extensive tree-in-bud densities in the lungs which could be from aspiration or intra-alveolar hemorrhage. Nodular lesions in the left lower lobe measuring up to 2 cm in diameter with differential diagnosis including neoplastic process. Hilar and mediastinal lymphadenopathy were noted. The ED contacted pulmonology Dr. Taylor, who advised steroids, antibiotics and admission to the hospital service, and he will see the patient as windows consultant. Principal Diagnosis Hemoptysis possibly secondary to Bronchitis , Pulmonary Nodules , Rule out Mycobacterium Infection Discharge Exam Constitutional: Patient appears to be of their stated age. Patient is in no apparent distress. Patient is well-developed. Eyes: Pupils are equal round and reactive to light. Conjunctivae are normal. Anicteric sclera. Ears nose, mouth and throat: Mallampati class 2. Normal posterior oropharynx. Uvula is midline. Neck: Trachea is midline. Visual inspection is normal. Respiratory: Prolonged phase of exhalation. Mild expiratory wheeze. Cardiovascular: Regular rate and rhythm. No murmurs. No edema. Gastrointestinal: Normal bowel sounds, soft, nontender and nondistended. No hepatosplenomegaly noted. Musculoskeletal: No cyanosis. Patient is able to move all extremities. Strength is 5 out of 5 in the upper and lower extremities. Skin: No rashes, warm dry and intact. Neurologic: No obvious focal neurological deficits seen. Psychiatric: Alert and oriented x3 with a euthymic affect. 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 Taylor - new left lower lobe nodule measuring approximately 2 cm which appears suspicious. He has had fleeting nodules over the course of the last 2 years. 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 obtained AFB sputum cultures and regular Gram stain and sputum cultures follow outpatient with Pulmonary He will need a follow-up CT chest without contrast in 8 to 10 weeks to follow-up on the left lower lobe lung nodule. If it remains persistent, can consider robotic bronchoscopy with navigation. History of PE/chronic anticoagulation with Xarelto- Hold anticoagulation as noted and resume upon discharge Diabetes mellitus- continue dulaglutide and dapagliflozin Place on Accu-Cheks with NovoLog SSI Hypertension- Continue metoprolol tartrate and clonidine Home Health Attestation I certify that this patient is under my care and that I, or a physicians drafter assistant working with me, had a face to-face encounter that meets the home health [id number] encounter requirements with this patient. The encounter with the patient was in whole, or in part, for the following medical condition, which is the primary reason for home health care (list medical condition): I certify that, based on my findings, the following services are medically necessary home health services: My clinical findings support the need for the above services because: Further, I certify that my clinical findings support that this patient is homebound (i.e. absences from home require considerable and taxing effort and are for medical reasons or congregation services or infrequently or of short duration when for other reasons) because: Certification for Home Health Services: Based on the above findings, I certify that this patient is confined to the home and needs intermittent long term care, physical therapy and/or speech therapy or continues to need occupational therapy. The patient is under my care, and I have initiated the establishment of the plan of care. This patient will be followed by a physician who will periodically review the plan of care. Total Time Total Time Spent Total Time Spent (In Minutes): 45 mins Discharge Plan Discharge Items Patient Disposition: Home - Self-Care Reason For Visit: HEMOPTYSIS, LLL 2 CM MASS, SILICOSIS Discharge Diagnosis: Hemoptysis , rule out Mycobacterium Infection , pulmonary nodules , pause for 3s Condition on Discharge: Good Activity: Resume your previous activity Lifting: Gradually increase as tolerated Bathing: No limitations Sexual Activity: When tolerated Exercise/Sports: Gradually increase as tolerated Driving/Machine Use: No limitations Weightbearing: Full weightbearing Non-emergency contact: Primary Care Provider Call non-emergency contact if: you have any medication questions Follow-up/Referrals: Kali Taylor MD [Physician] - 11/13/23 (AFB cultures are pending , Hemoptysis, pulmonary nodules, on Xarelto , needs follow up CT 3-6 MONTH ) Mayte Lee CRNP [Primary Care Provider] - 10/04/23 9:30 am Diet: Carb Consistent or DM2 and Heart Healthy Addtl Attending Provider Instructions: the patient needs to follow with [facility] for pulmonary nodules , possible mycobacterium Infection and Hemoptysis His is bradycardic heart rate in 60s had a pause for 3s Asymptomatic, d/w with his dip guider stoves , rec close follow up with cardiology and decrease the does of Metoprolol to 150 mg BID Pending Studies at Discharge: No Stand-Alone Forms: My [facility] Outline App, Smoking Cessation Medications and DC Order Prescriptions: New prednisone 20 mg tablet 40 mg PO DAILY Qty: 18 0RF Rx Instructions: 40 MG 5 DAYS THEN 20 FOR 5 DAYS THEN 10 FOR 5 DAYS THEN STOP cefdinir 300 mg capsule 300 mg PO BID 5 Days Qty: 10 0RF metoprolol tartrate 50 mg tablet 50 mg PO BID Qty: 120 0RF Continued albuterol sulfate 90 mcg/actuation HFA aerosol inhaler 2 puff inhalation Q4H PRN (Reason: shortness of breath or wheezing) Qty: 18 5RF prednisone 10 mg tablet 40 mg PO DAILY 5 Days Qty: 20 0RF azithromycin 500 mg tablet See Rx Instructions PO .COMPLEX Qty: 3 0RF Rx Instructions: For 500 mg dose pack: take 500 mg once daily for 3 days PO nitroglycerin 0.4 mg tablet, sublingual 0.4 mg SL UD PRN (Reason: Chest Pain) calcium carbonate 600 mg calcium (1,500 mg) tablet 600 mg PO QAM cholecalciferol (vitamin D3) 2,000 unit capsule 2,000 unit PO QAM bumetanide 1 mg tablet 1 mg PO BID PRN (Reason: Fluid Retention) atorvastatin 20 mg tablet 20 mg PO QAM Qty: 90 Farxiga 10 mg tablet 10 mg PO QAM hydrochlorothiazide 25 mg tablet 25 mg PO QAM Trulicity 0.75 mg/0.5 mL pen injector 0.75 mg subcut WK Kerendia 10 mg tablet 10 mg PO QAM Trelegy Ellipta 100-62.5-25 mcg blister with device 1 ea INHALATION QAM amlodipine 5 mg tablet 5 mg PO QAM clonidine HCl 0.2 mg tablet 0.2 mg PO BID alprazolam 0.5 mg Tablet 0.5 mg PO Q6 PRN (Reason: Anxiety) sodium chloride 7 % Solution For Nebulization 1 inh INHALATION BID PRN (Reason: Congestion) montelukast 10 mg Tablet 10 mg PO HS acetaminophen [Tylenol Extra Strength] 500 mg Tablet 1,000 mg PO Q6H PRN (Reason: Fever Or Pain) rivaroxaban 20 mg Tablet 20 mg PO PM Rx Instructions: must administer with evening meal potassium chloride [Klor-Con M20] 20 mEq Tablet,Er Particles/Crystals 20 meq PO BID PRN (Reason: with bumetanide) ipratropium-albuterol 0.5 mg-3 mg(2.5 mg base)/3 mL Solution For Nebulization 3 ml INHALATION DAILY ipratropium bromide 42 mcg (0.06 %) [place],Non-Aerosol 1 - 2 spray INTRANASAL DAILY Rx Instructions: administer into each nostril Discontinued metoprolol tartrate 100 mg Tablet 200 mg PO BID Discharge Orders: Discharge Order (Routine); Ordered 10/02/23 Ordered By: Christopher Keller/Other Patient Handouts: Understanding Deep Vein Thrombosis, DVT Complications, Managing Type 2 Diabetes, Preventing Deep Vein Thrombosis Admission Data Admit Date/Time: 09/30/23 23:09 Attending Provider: Christopher Woods Admit Provider: Anastacio Davison Primary Care Provider: Mayte Lee Other Providers: Anastacio Davison; Kali Taylor Other Interventions: Discharge Summary Assessment (RN) Last Done: 10/02/23 13:55 Coding Level of Care Code 24584 INP/OBS DISCH >30 MIN Diagnoses Hemoptysis R04.2 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
== END 2023-10-02 16:04 | disposition home or self-care (01) ==
LOC: ED 13:57 → INTOOBSV 23:09 → SUATTDRO 23:09 → 2S 23:09